=== PATIENT | male | born 1950 | race Two or more races ===

== ENCOUNTER 2021-09-23 21:07 | Emergency (ER) | payer OTHER ==
[~2021-09-23] VITALS: Ht 182.9 cm; Wt 90.7 kg
== END 2021-09-24 00:13 | disposition home or self-care (01) ==
LOC: ER 21:07
DX: R31.9 Hematuria, unspecified (principal); N20.0 Calculus of kidney; K80.20 Calculus of gallbladder without cholecystitis without obstruction; K57.30 Diverticulosis of large intestine without perforation or abscess without bleeding